=== PATIENT | female | born 1970 | race Caucasian/White ===

== ENCOUNTER → 2016-05-23 | Outpatient (CLI) | payer BC ==
[~2016-05-23] MED LIST: EFF375 PO; FLX10 PO; IBUP-1050 PO; LRT5 PO
== END | disposition home or self-care (01) ==
LOC: C.PAPS 15:21
PROVIDERS: ATTEND Obstetrics & Gynecology
DX: Z01.419 Encounter for gynecological examination (general) (routine) without abnormal findings (principal)

== ENCOUNTER → 2016-08-03 | Outpatient (CLI) | payer BC ==
[2016-08-03 12:20] LABS: BASO % 1.5 %; COMPLETE YES; EOS % 3.8 %; HEMATOCRIT 40.3 % (37-47); IG% 0.1 %; LYMPH % 29.1 %; LYMPH ABS # 1.97 K/uL (1.2-3.4); MEAN CELL VOLUME 93.1 fL (80-100); MEAN CORPUSCULAR HEMOGLOBIN 31.2 pg (25-34); MEAN CORPUSCULAR HGB CONC 33.5 g/dl (32-36); MEAN PLATELET VOLUME 10.4 fL (7.4-10.4); MONO % 6.6 %; NEUT % 58.9 %; PLATELET COUNT 240 K/uL (130-400); RED BLOOD COUNT 4.33 M/uL (4.2-5.4); WHITE BLOOD COUNT 6.77 K/uL (4.8-10.8)
[2016-08-03 12:50] LABS: CHOLESTEROL/HDL RATIO 4.2; FERRITIN 119.4 ng/ml (8.0-388.0); THYROID STIMULATING HORMONE 2.17 uIu/ml (0.300-4.500)
== END | disposition home or self-care (01) ==
LOC: C.LAB 10:40
DX: R53.83 Other fatigue (principal); E61.1 Iron deficiency; Z13.220 Encounter for screening for lipoid disorders; Z13.1 Encounter for screening for diabetes mellitus

== ENCOUNTER → 2016-08-29 | Outpatient (CLI) | payer BC ==
--- NOTE | 2016-08-30 07:55 | MAMMOGRAPHY REPORT ---
BILATERAL DIGITAL SCREENING MAMMOGRAM TOMOSYNTHESIS WITH CAD: 08/29/2016 CLINICAL HISTORY: Routine screening. Patient has no complaints. TECHNIQUE: Breast tomosynthesis in addition to standard 2D mammography was performed. Current study was also evaluated with a Computer Aided Detection (CAD) system. COMPARISON: Comparison is made to exams dated: 08/27/2015 mammogram, 08/25/2014 mammogram, 10/09/2013 m ammogram, 09/05/2013 mammogram, 08/26/2013 mammogram, and 08/12/2013 mammogram - [facility] enter. BREAST COMPOSITION: The tissue of both breasts is heterogeneously dense, which may obscure small ma sses. FINDINGS: There are 2 stable lobulated and circumscribed masses in the lateral posterior left breast . The dominant mass measuring 19 mm was previously biopsied and has an associated ribbon-shaped met allic biopsy marker. No new suspicious mass, architectural distortion or cluster of suspicious micr ocalcifications is seen bilaterally. IMPRESSION: ACR BI-RADS CATEGORY 1: NEGATIVE There is no mammographic evidence of malignancy. A 1 year screening mammogram is recommended. The p atient will receive written notification of the results. Approximately 10% of breast cancers are not detected with mammography. A negative mammographic repor t should not delay biopsy if a clinically suggestive mass is present. Rubia Lee M.D. ay/:08/29/2016 21:39:49 Civil Preparedness Coordinator: Felecia PADILLA)([place]), [facility] letter sent: Normal 1/2 BI-RADS Code: ACR BI-RADS Category 1: Negative
== END | disposition home or self-care (01) ==
LOC: C.MAMM 08:55
DX: Z12.31 Encounter for screening mammogram for malignant neoplasm of breast (principal)